=== PATIENT | female | born 2000 | race Caucasian/White ===

== ENCOUNTER 2019-04-26 11:00 | Outpatient (CLI) | payer OTHER, SELFPAY ==
--- NOTE | ~2019-04-26 | US_ITS ---
EXAMINATION: US OB <= 14 weeks fetus DATE: 04/26/2019 11:47 INDICATION: Subchorionic hematoma TECHNIQUE: Real-time pelvic ultrasound utilizing both a transvaginal and transabdominal probe was pe rformed. The interpreting radiologist was not present for the study. COMPARISON: None. FINDINGS: The uterus measures 12.8 x 6.9 x 8.7 cm. There is an intrauterine gestational sac. A yolk sac and fe aquiles pole are identified. The crown rump length measures 5.2 cm, which correlates with an estimated ge stational age of 12 weeks and 0 days. heart motion is identified measuring 163 beats per minute (bpm) by M-mode Doppler.No evident subchorionic hematoma. The ovaries are not visualized. No abnorma lities identified at either the left or right adnexa. There is no free fluid in the pelvis. IMPRESSION: 1. Single living fetus with heart rate of 163 bpm. 2. Gestational age by ultrasound of 12 weeks 0 day(s) +/- 1 week and 1 day(s) with ultrasound estima estella date of delivery (THUAN) of 11/08/2019. 3. No evident subchorionic hematoma. Reviewed, dictated and finalized at location A. ISSARY WORKER IMPRESSION: 1. Single living fetus with heart rate of 163 bpm. 2. Gestational age by ultrasound of 12 weeks 0 day(s) +/- 1 week and 1 day(s) with ultrasound estimated date of delivery (THUAN) of 11/08/2019. 3. No evident subchorionic hematoma.
== END 2019-04-26 11:01 ==
PROVIDERS: Visit Provider Obstetrics & Gynecology
DX: O36.8910 Maternal care for other specified fetal problems, first trimester, not applicable or unspecified (principal); Z3A.12 12 weeks gestation of pregnancy
CPT/HCPCS: 76801

== ENCOUNTER 2019-06-16 13:07 | Outpatient (CLI) | payer OTHER, SELFPAY ==
--- NOTE | ~2019-06-16 | US_ITS ---
EXAMINATION: US OB /maternal detail DATE: 06/16/2019 14:26 INDICATION: Second trimester anatomic survey TECHNIQUE: Real-time ultrasound of the pelvis was performed. COMPARISON: None. FINDINGS: There is a single living fetus in breech presentation. The placenta is anterior/fundal. heart r ate is 152 beats per minute (bpm). cardiac activity and movement are noted. The amniotic fluid index is subjectively normal. Four chamber heart is not well demonstrated. The following anatomy was identified as normal: 3 vessel cord cord insertion kidneys urinary bladder stomach spine diaphragm ventricles cisterna magna cerebellum The following biometric data were obtained: Biparietal diameter (BPD): 4.2 cm; head circumference (HC): 16.3 cm; abdominal circumference (AC): 14 .0 cm; femur length (FL): 2.9 cm. These measurements are concordant. Estimated weight is 280 g +/- 42 g, which correlates with the 41st percentile when 11/08/2019 is used as estimated date of delivery. As single measurements, these parameters are each equal to the following estimated gestational ages w ith ranges of +/- 2 standard deviations: BPD: 19 weeks 0 days +/- 1 weeks 5 days. HC: 19 weeks 1 days +/- 1 weeks 3 days. AC: 19 weeks 3 days +/- 2 weeks 0 days. FL: 19 weeks 0 days +/- 1 weeks 6 days. estimated gestational age based solely on measurements from this exam is 19 weeks 1 days +/- 1 weeks 2 days. IMPRESSION: 1. Single living fetus in breech presentation. 2. Estimated weight is 280 g +/- 42 g, which correlates with the 41st percentile when 11/08/2019 is used as estimated date of delivery. 3. Heart not well demonstrated. Reviewed, dictated and finalized at location A. IMPRESSION: 1. Single living fetus in breech presentation. 2. Estimated weight is 280 g +/- 42 g, which correlates with the 41st per centile when 11/08/2019 is used as estimated date of delivery. 3. Heart not well demonstrated.
== END 2019-06-16 13:08 | disposition home or self-care (01) ==
PROVIDERS: Visit Provider Obstetrics & Gynecology
DX: Z36.9 Encounter for antenatal screening, unspecified (principal); Z3A.19 19 weeks gestation of pregnancy
CPT/HCPCS: 76805

== ENCOUNTER 2019-08-03 12:40 | Outpatient (CLI) | payer OTHER, SELFPAY ==
--- NOTE | ~2019-08-03 | US_ITS ---
EXAMINATION: US OB limited DATE: 08/03/2019 13:38 INDICATION: Nonvisualized anatomy on anatomic survey. TECHNIQUE: Real-time ultrasound of the pelvis was performed. COMPARISON: Ultrasound 06/16/2019, 04/26/2019 FINDINGS: There is a single fetus in breech presentation. The placenta is anterior. heart rate is 147 be ats per minute (bpm). The amniotic fluid volume is subjectively normal. The heart is normal. IMPRESSION: 1. Single living fetus in breech presentation. 2. Normal heart. Reviewed, dictated and finalized at location A.
== END 2019-08-03 12:41 | disposition home or self-care (01) ==
PROVIDERS: Visit Provider Obstetrics & Gynecology
DX: Z36.2 Encounter for other antenatal screening follow-up (principal)
CPT/HCPCS: 76815

== ENCOUNTER 2019-09-15 07:42 | Outpatient (RCR) | payer OTHER, SELFPAY ==
[2019-09-15 09:31] LABS: Hematocrit 31.1 % (37.0-47.0); Hemoglobin 10.5 g/dL (12.0-15.0)
[2019-09-15 09:37] LABS: Glucose 1 Hour PP 50gm Dose 102 mg/dL
[2019-09-15 10:16] LABS: HIV 1/2 Ab P24 Ag Result Negative (Negative); Vitamin D 25 Hydroxy 33.8 ng/mL
== END 2019-12-14 23:59 | disposition home or self-care (01) ==
LOC: ANHLAB 07:42
PROVIDERS: Visit Provider Obstetrics & Gynecology
DX: Z29.13 Encounter for prophylactic Rho(D) immune globulin (principal); Z11.4 Encounter for screening for human immunodeficiency virus [HIV]; O36.0990 Maternal care for other rhesus isoimmunization, unspecified trimester, not applicable or unspecified; Z3A.00 Weeks of gestation of pregnancy not specified
CPT/HCPCS: 36415; 82306; 82947; 85014; 85018; 85461; 86703; G0432

== ENCOUNTER 2019-10-19 13:58 | Outpatient (CLI) | payer OTHER, SELFPAY ==
--- NOTE | ~2019-10-19 | US_ITS ---
EXAMINATION: US OB follow up DATE: 10/19/2019 15:08 INDICATION: Size greater than dates during third trimester TECHNIQUE: Real-time ultrasound of the pelvis was performed. The interpreting radiologist was not pre sent for the study. COMPARISON: None. FINDINGS: There is a single living fetus in vertex presentation. The placenta is anterior. card iac activity and movement are noted. heart rate is 148 beats per minute (bpm). The amniot ic fluid index is 16.9 cm which is normal. The following biometric data were obtained: Biparietal diameter (BPD): 9.4 cm; head circumference (HC): 34.3 cm; abdominal circumference (AC): 34 .2 cm; femur length (FL): 7.1 cm. These measurements are concordant. Estimated weight is 3354 g +/- 503 g, which correlates with the 78th percentile when 11/08/2019 i s used as estimated date of delivery. As single measurements, these parameters are each equal to the following estimated gestational ages w ith ranges of +/- 2 standard deviations: BPD: 38 weeks 3 days ( 35 weeks 2 days - 41 weeks 4 days). HC: 39 weeks 4 days ( 36 weeks 6 days - 42 weeks 2 days). AC: 38 weeks 1 days ( 35 weeks 1 days - 41 weeks 1 days). FL: 36 weeks 3 days ( 33 weeks 2 days - 39 weeks 4 days). estimated gestational age based solely on measurements from this exam is 38 weeks 1 days +/- 2 weeks 5 days. IMPRESSION: 1. Single living fetus in vertex presentation. 2. Estimated weight is 3354 g +/- 503 g, which correlates with the 78th percentile when 0 is used as estimated date of delivery. 3. Normal amniotic fluid index. Reviewed, dictated and finalized at location A. IMPRESSION: 1. Single living fetus in vertex presentation. 2. Estimated weight is 3354 g +/- 503 g, which correlates with the 78th p ercentile when 11/08/2019 is used as estimated date of delivery. 3. Normal amniotic fluid index.
== END 2019-10-19 13:59 ==
PROVIDERS: Visit Provider Obstetrics & Gynecology
DX: Z36.2 Encounter for other antenatal screening follow-up (principal)
CPT/HCPCS: 76816

== ENCOUNTER 2019-11-03 00:02 | Inpatient (IN) | payer OTHER, SELFPAY ==
[2019-11-03] VITALS (252 sets, daily range): BP systolic 82–140; BP diastolic 39–121; PULSE 60–159; RESP 16; TEMP 36.2–38.3; O2SAT 96–100; BMI 42.3
--- NOTE | 2019-11-03 00:41 | LDADM ---
This patient, Adia Collins, was admitted to Labor/Delivery/Recovery 104 on 11/03/19 at 00:02. Plans for labor, pain management and were discussed with patient. Patient/family oriented to hospital policies and general routines including ID bracelet, bed and alarms, visiting hours, pain management, procedures, bathroom and other care routines, personal items, smoking policy, room service/diet and guest tray routines, infant security routines, and visiting hours. Patient/Family are encouraged to report perceived risks to care and to ask questions if they do not understand what they are told or what they should do. See OBIX for further documentation.
[2019-11-03 00:58] LABS: Basophils Percent Auto 0.2 % (0.2-1.2); Eosinophils Absolute Auto 0.1 K/mm3 (0-0.3); Eosinophils Percent Auto 0.9 % (0-4.4); Hematocrit 30.8 % (37.0-47.0); Hemoglobin 10.3 g/dL (12.0-15.0); Immature Granulocyte Absolute 0.12 K/mm3 (0.00-0.031); Lymphocytes Percent Auto 18.5 % (18.3-44.2); Mean Corpuscular HGB Conc 33.4 g/dl (32-36); Mean Corpuscular Hemoglobin 28.1 pg (26-34); Mean Corpuscular Volume 84.2 fl (80-100); Mean Platelet Volume 10.1 fl (7.4-10.4); Monocytes Absolute Auto 1.4 K/mm3 (0.1-0.6); Monocytes Percent Auto 10.9 % (2.6-8.5); Neutrophils Absolute Auto 8.6 K/mm3 (1.3-6.7); Neutrophils Percent Auto 68.5 % (45.5-73.1); Platelet Count Result 267 k/mm3 (150-375); Red Blood Count 3.66 M/mm3 (4.2-5.4); Red Cell Distribution Width 12.6 % (11.5-14.5); White Blood Count 12.5 K/mm3 (4.5-10.0)
[2019-11-03] MEDS: LACTATED RINGERS 1,000 ML 125 ML IV CONT ×3 (01:03→14:53)
[2019-11-03] MEDS: AMPICILLIN 2 GM/NS 100 ML 2 GM/100 ML BAG IVPB (01:03)
[2019-11-03] MEDS: DINOPROSTONE 10 MG VAG INSERT VAGINAL (01:13)
[2019-11-03] MEDS: AMPICILLIN 1 GM/NS 50 ML 1 GM/50 ML BAG IVPB ×5 (05:11→21:30)
[2019-11-03 07:29] LABS: Rapid Plasma Reagin Non-Reactive (NonReactive)
--- NOTE | 2019-11-03 07:47 | P.PNAN_ITS ---
Anes - Eval Pre Procedure Procedure: Labor epidural Date/Time: 11/03/19 07:47 Pre Op Diagnosis: Induction of Labor Patient Data Age: 19 Gender: F Height: 1.63 m Weight: 112 kg Last Vital Signs Temp 36.4 C 11/03/19 07:16 Pulse 75 11/03/19 07:17 BP 104/54 L 11/03/19 07:17 Allergies Allergy/AdvReac Type Severity Reaction Status Date / Time EGGS Allergy Unknown Uncoded 10/31/19 15:25 Home Medications Medication Instructions Recorded Confirmed Type PNV cmb#95-ferrous fumarate-FA 1 tablet PO DAILY 10/31/19 11/03/19 History [] Laboratory Tests 11/03/19 11/03/19 11/03/19 00:35 00:35 00:35 WBC 12.5 K/mm3 H K/mm3 (4.5-10.0) RBC 3.66 M/mm3 L M/mm3 (4.2-5.4) Hgb 10.3 g/dL L g/dL (12.0-15.0) Hct 30.8 % L % (37.0-47.0) MCV 84.2 fl fl (80-100) MCH 28.1 pg pg (26-34) MCHC 33.4 g/dl g/dl (32-36) RDW 12.6 % % (11.5-14.5) Plt Count 267 k/mm3 k/mm3 (150-375) MPV 10.1 fl fl (7.4-10.4) Immature Gran % (Auto) 1.0 % H % (0-0.5) Neut % (Auto) 68.5 % % (45.5-73.1) Lymph % (Auto) 18.5 % % (18.3-44.2) [place] % (Auto) 10.9 % H % (2.6-8.5) Eos % (Auto) 0.9 % % (0-4.4) Baso % (Auto) 0.2 % % (0.2-1.2) Lymph # (Auto) 2.30 K/mm3 K/mm3 (0.9-3.2) [place] # (Auto) 1.4 K/mm3 H K/mm3 (0.1-0.6) Eos # (Auto) 0.1 K/mm3 K/mm3 (0-0.3) Baso # (Auto) 0.0 K/mm3 K/mm3 (0.0-0.1) Abs Immat Gran (auto) 0.12 K/mm3 H K/mm3 (0.00-0.031) Absolute Neuts (auto) 8.6 K/mm3 H K/mm3 (1.3-6.7) Absolute Nucleated RBC 0.0 K/mm3 K/mm3 (0.0-0.012) Nucleated RBC % 0.0 % % (0.0-0.2) RPR Non-reactive (NonReactive) Blood Type O Negative Antibody Screen Negative Patient hx anesthesia problems: none Family hx anesthesia problems: none [facility] Past Medical History Medical History (Updated 11/03/19 @ 07:49 by Koki Mcleod CRNA) Asthma Obese Family History Family History Grandparent Hypertension Social History Social History Smoking status: Never smoker Second hand tobacco smoke exposure: No Substance use: never Spiritual care concerns: No Exam Day of Procedure 11/03/19 07:47 Patient weight: obese Heart: regular rate and rhythm Lungs: normal air movement Airway: Mallampati scale class II Neurological: alert and oriented
--- NOTE | 2019-11-03 08:00 | WPDOBADMIT ---
Obstetrics - Admit Note Admission Note: record reviewed. No pertinent additions to the history and/or any subsequent changes in the physical findings that are not consistent with the expected course of the were found. Additions to the history and/or subsequent changes in the physical findings follow. None. Here for MIL. Cervadil last pm. Now /-2 AROM with clear fluid. FHTs reactive. Start pitocin in 1 hour
[2019-11-03] MEDS: OXYTOCIN 30 UNITS/NS 500 ML 30 UNITS/500 ML BAG 6 UNITS IV CONT (08:57)
[2019-11-03] MEDS: SODIUM CHLORIDE 0.9% IV 1,000 ML 150 ML I-UTERINE (23:27)
[2019-11-04] VITALS (30 sets, daily range): BP systolic 99–147; BP diastolic 49–92; PULSE 29–124; RESP 14–18; TEMP 36.8–38.3; O2SAT 79–100
[2019-11-04] MEDS: GENTAMICIN SULFATE INJ 390 MG in DEXTROSE 5% 100 ML 109.8 MG IVPB (00:20)
--- NOTE | 2019-11-04 01:18 | PM.OBPRVD ---
OB - Delivery Note Procedure Delivery date: 11/04/19 events: Labor Induction Intrapartal events: Febrile Induction method: AROM and per pitocin protocol Delivery monitor: external FHT and internal uterine Route of delivery: Laceration description: Vaginal - 1st Degree Delivery repair: vicryl (3-0) Specimen: Yes (placenta) Estimated blood loss (mL): 100 Anesthesia type: Epidural Disposition: floor Baby Weeks of gestation at delivery: 39 gender: Male Weight (pounds): 8 presentation: vertex Placenta delivery description: Spontaneous cord vessel description: 3 Vessels and Nuchal Cord score one minute: 7 score five minutes: 9
--- NOTE | 2019-11-04 01:19 | P.DS_ITS ---
DS: Admitting Diagnosis Admitting Diagnosis Admitting Diagnosis: Induction of Labor OB - DS: Summary OB Procedures : Ultrasound OB Procedures Intrapartum: Spontaneous Vag Delivery OB Procedures: : None Peripartum Data Delivery Method: Natural Vaginal Laceration description: Vaginal - 1st Degree complications: none Status at Discharge Functional status at discharge: independent ambulation Overall status at discharge: patient is progressing back to baseline Time Spent with Patient Time attestation: Total time spent providing and/or coordinating discharge services: DS: Data Data Completed and Pending Labs on day of discharge: Labs from last 24 hours 11/03/19 11/03/19 00:35 00:35 RPR Non-reactive Blood Type O Negative Antibody Screen Negative Discharge Plan Discharge Attending physician on discharge: Isis Elizabeth Discharging Clinician: Isis Elizabeth Anticipated Discharge Date/Time: 11/06/19 01:20 Patient Disposition: Home, Self-Care Activity: pelvic rest Diet: regular Patient Instructions: Antibiotic Form Stand Alone Forms: General Discharge Information Follow-up/Referrals: Isis Elizabeth MD [Physician] - 6 Weeks Discharge Medications: Continued PNV cmb#95-ferrous fumarate-FA [] 28 mg iron- 800 mcg Tablet 1 tablet PO DAILY RF: 0 Date of admission: 11/03/19 00:02 Primary Care Provider: PHYSICIAN,WINDOWS SUPPORT ENGINEER Admitting Provider: Isis Elizabeth Attending physician on admission: Isis Elizabeth Condition: Stable Care Plan Goals: plans Mirena IUD for control
[2019-11-04] MEDS: OXYTOCIN 30 UNITS/NS 500 ML 30 UNITS/500 ML BAG 125 UNITS IV CONT (01:20)
[2019-11-04] MEDS: IBUPROFEN 600 MG TABLET PO ×3 (02:54→21:59)
[2019-11-04] MEDS: BENZOCAINE 20% AER SPR (*SP) 56 GM CAN 1 SPRAY TOPICAL (02:54)
[2019-11-04] MEDS: WITCH HAZEL 40 PADS 1 PAD TOPICAL (02:55)
[2019-11-04] MEDS: MULTIVIT/MIN/PREN/FOL AC/IRON TABLET 1 TAB PO (09:03)
[2019-11-04] MEDS: DOCUSATE SODIUM 100 MG CAPSULE PO (09:03)
--- NOTE | 2019-11-04 09:45 | PC.NURSE ---
Mother called out for assist with latching , reporting infant is sleepy and not waking for feeding. Reviewed feeding cues, frequencies, duration of feedings, feeding elimination flow sheet, and signs of adequate intake. Demonstrated stimulation techniques to wake for feeding. Assisted with infant to breast. Reviewed positioning/alignment in cross cradle, holding breast in U hold and guided asymmetrical latch on. Several attempts before was able to latch. Several attempts before infant was able to latch correctly. Infant nursed sleepily, with steady draws and occasional swallowing noted. Reviewed signs of a correct latch, effective nursing and suck swallow ratio. was able to maintain latch without discomfort to mother. Nipple care reviewed. Suggested to stimulate while feeding to keep infant awake and nursing effectively for increased intake and to assist with maintaining deep latch. Demonstrated how to adjust latch more deeply while feeding. Instructed mother to call out for RN assistance if she is unable to latch for feeding or she has discomfort with nursing. Instructed feeding should be initiated three hours from start of last feeding or if feeding cues are noted before. Mother voiced understanding of information shared.
--- NOTE | 2019-11-04 10:05 | WPDANLDPN2 ---
Anes-Prog Note L&D Date/Time: 11/04/19 10:05 Comfortable throughout: labor and delivery Neuraxial method: epidural Epidural/Spinal procedure site: clean & non-tender Neuro status: Neuro function grossly intact. Cardiovascular status: normal Respiratory status: normal Airway patency: baseline Mental status: baseline Post-Op hydration status: normal Vital Signs: Last Vital Signs Temp 36.8 C 11/04/19 08:10 Pulse 72 11/04/19 08:10 Resp 18 11/04/19 08:10 BP 111/70 11/04/19 08:10 Pulse Ox 98 11/04/19 08:10 Pain score (VAS): 0/10. Patient resting in bed at time of assessment, appears comfortable. Support person at bedside. I/O: Intake & Output 11/03/19 11/04/19 11/04/19 23:59 07:59 15:59 Intake Total 100 1600 Output Total 1200 794 Balance -1100 806 Post-procedural complaints: none Patient feedback: Patient satisfied with anesthetic care.
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
[2019-11-05 06:11] LABS: Hematocrit 24.5 % (37.0-47.0); Hemoglobin 8.2 g/dL (12.0-15.0)
[2019-11-05] MEDS: POLYSACCHARIDE IRON COMPLEX 150 MG CAPSULE PO (07:25)
[2019-11-05] MEDS: DOCUSATE SODIUM 100 MG CAPSULE PO (07:25)
[2019-11-05] MEDS: MULTIVIT/MIN/PREN/FOL AC/IRON TABLET 1 TAB PO (07:25)
[2019-11-05] MEDS: IBUPROFEN 600 MG TABLET PO (07:25)
--- NOTE | 2019-11-05 07:29 | PM.OBPNVD ---
OB - PN: Subj Subjective Date/time seen: 11/05/19 07:29 Patient comments: no complaints and pain well controlled baby status: doing well OB - PN: Obj Data Labs CBC & Chem 7: 11/05/19 05:38 Labs: Laboratory Results - last 24 hr 11/05/19 05:38 Hgb 8.2 L Hct 24.5 L OB - PN A/P Plan day: 1 Plan: routine care Time Spent With Patient Time: Total time spent is greater than 50% in coordination of care (as documented) at patient's floor/unit and/or counseling patient: Exam : Bimanual exam- vagina & uterus: other (Uterus firm, nt @U)
[2019-11-05 08:00] VITALS: BP 110/69; PULSE 70; PULSE 72; RESP 14; RESP 18; TEMP 36.7; O2SAT 98; O2SAT 99
--- NOTE | 2019-11-05 14:54 | WPDANLDPN2 ---
Anes-Prog Note L&D Date/Time: 11/05/19 14:54 Comfortable throughout: labor and delivery Neuraxial method: epidural Epidural/Spinal procedure site: clean & non-tender Neuro status: Neuro function grossly intact. Cardiovascular status: normal Respiratory status: normal Airway patency: baseline Mental status: baseline Post-Op hydration status: normal Vital Signs: Last Vital Signs Temp 36.7 C 11/05/19 08:00 Pulse 72 11/05/19 08:00 Resp 18 11/05/19 08:00 BP 110/69 11/05/19 08:00 Pulse Ox 99 11/05/19 08:00 Post-procedural complaints: none Patient feedback: Patient satisfied with anesthetic care.
[2019-11-05 19:35] VITALS: BP 116/70; PULSE 88; RESP 13; TEMP 37.1; O2SAT 99
--- NOTE | 2019-11-06 05:17 | PM.OBPNVD ---
OB - PN: Subj Subjective Date/time seen: 11/06/19 05:17 Patient comments: no complaints and pain well controlled baby status: doing well and nursing well OB - PN: Obj Data Labs CBC & Chem 7: 11/05/19 05:38 Labs: Laboratory Results - last 24 hr 11/05/19 05:38 Hgb 8.2 L Hct 24.5 L OB - PN A/P Plan day: 2 Plan: routine care, discharge home and follow up 6 weeks Comments: plans IUD for bc Time Spent With Patient Time: Total time spent is greater than 50% in coordination of care (as documented) at patient's floor/unit and/or counseling patient: Exam : Bimanual exam- vagina & uterus: other (Uterus firm, nt @U)
[2019-11-06 07:55] VITALS: BP 118/64; PULSE 61; RESP 18; TEMP 36.4; O2SAT 99
[2019-11-06] MEDS: POLYSACCHARIDE IRON COMPLEX 150 MG CAPSULE PO (07:55)
[2019-11-06] MEDS: MULTIVIT/MIN/PREN/FOL AC/IRON TABLET 1 TAB PO (07:55)
--- NOTE | 2019-11-06 10:55 | WPDANLDPN2 ---
Anes-Prog Note L&D Date/Time: 11/06/19 10:55 Comfortable throughout: labor and delivery Neuraxial method: epidural Epidural/Spinal procedure site: clean & non-tender Neuro status: Neuro function grossly intact. Cardiovascular status: normal Respiratory status: normal Airway patency: baseline Mental status: baseline Post-Op hydration status: normal Vital Signs: Last Vital Signs Temp 36.4 C L 11/06/19 07:55 Pulse 61 11/06/19 07:55 Resp 18 11/06/19 07:55 BP 118/64 11/06/19 07:55 Pulse Ox 99 11/06/19 07:55 Post-procedural complaints: none Patient feedback: Patient satisfied with anesthetic care.
[2019-11-06] MEDS: RHO(D) IMMUNE GLOBULIN 300 MCG SYRINGE IM (14:08)
[2019-11-09 10:49] VITALS: BP 114/70; PULSE 79; RESP 20; TEMP 37.1; O2SAT 98
== END 2019-11-06 18:22 | disposition home or self-care (01) | DRG 807 ==
LOC: ANHLDR 11-04 01:20 → ANHOB2 11-04 03:44
PROVIDERS: Admitting Provider Obstetrics & Gynecology Gynecology; Visit Provider Obstetrics & Gynecology Gynecology
DX: O99.824 Streptococcus B carrier state complicating childbirth (principal); Z37.0 Single live birth; O69.81X0 Labor and delivery complicated by cord around neck, without compression, not applicable or unspecified; O70.0 First degree perineal laceration during delivery; Z3A.39 39 weeks gestation of pregnancy; O99.214 Obesity complicating childbirth; E66.9 Obesity, unspecified
CPT/HCPCS: 36415; 85014; 85018; 85025; 85461; 86592; 86850; 86900; 86901; 88307; 90384; A9270; J0131; J0290; J1580; J2590; J2790; J2795; J7030; J7120